=== PATIENT | male | born 1980 | race African-American/Black ===

== ENCOUNTER 2016-09-16 09:47 | Emergency (ER) | payer MEDICAID ==
[~2016-09-16] VITALS: Ht 193 cm; Wt 67.0 kg
[~2016-09-16 09:47] MED LIST: NYQUIL
[2016-09-16] MEDS ORDERED: KETOROLAC 60MG/2ML VIAL IM ONE (10:30)
[2016-09-16 11:44] VITALS: BP 133/71
== END 2016-09-16 11:47 | disposition home or self-care (01) ==
LOC: ER 09:47
DX: L73.1 Pseudofolliculitis barbae (principal); R07.81 Pleurodynia; F17.200 Nicotine dependence, unspecified, uncomplicated; F12.10 Cannabis abuse, uncomplicated
CPT/HCPCS: 71010; 96372; 99283; J1885

== ENCOUNTER 2017-01-21 15:13 | Emergency (ER) | payer MEDICAID ==
[~2017-01-21] VITALS: Ht 185.4 cm; Wt 68.0 kg
[2017-01-21 15:44] VITALS: BP 124/95
== END 2017-01-21 23:57 | disposition left against medical advice (07) ==
LOC: ER 22:50
DX: Z53.21 Procedure and treatment not carried out due to patient leaving prior to being seen by health care provider (principal)

== ENCOUNTER 2017-03-04 11:25 | Emergency (ER) | payer MEDICAID ==
[~2017-03-04] VITALS: Ht 182.9 cm; Wt 70.0 kg
[2017-03-04 15:22] VITALS: BP 131/72
== END 2017-03-04 15:49 | disposition home or self-care (01) ==
LOC: ER 15:42
DX: Z51.89 Encounter for other specified aftercare (principal)
CPT/HCPCS: 99283

== ENCOUNTER 2019-03-15 18:56 | Emergency (ER) | payer MEDICAID ==
[~2019-03-15] VITALS: Ht 182.9 cm; Wt 67.0 kg
[2019-03-15 20:52] VITALS: BP 138/78
== END 2019-03-15 20:53 | disposition home or self-care (01) ==
LOC: ER 18:56
DX: R21 Rash and other nonspecific skin eruption (principal); Z04.89 Encounter for examination and observation for other specified reasons; F12.10 Cannabis abuse, uncomplicated; F17.200 Nicotine dependence, unspecified, uncomplicated
CPT/HCPCS: 99281

== ENCOUNTER 2023-03-02 12:37 | Emergency (ER) | payer MEDICAID ==
[~2023-03-02] VITALS: Ht 182.9 cm; Wt 63.0 kg
[2023-03-02 12:40] VITALS: O2SAT 100
[2023-03-02] MEDS ORDERED: IBUPROFEN 600MG TABLET PO STA (12:43)
[2023-03-02 13:31] VITALS: BP 122/85
[2023-03-02] MEDS ORDERED: IBUP-2029 MT (14:22)
[2023-03-02 15:04] VITALS: PULSE 109; RESP 16; TEMP 98.5
== END 2023-03-02 15:05 | disposition home or self-care (01) ==
LOC: ER 12:37
DX: S09.90XA Unspecified injury of head, initial encounter (principal); V49.9XXA Car occupant (driver) (passenger) injured in unspecified traffic accident, initial encounter; Y93.89 Activity, other specified; Y92.89 Other specified places as the place of occurrence of the external cause; Y99.8 Other external cause status
CPT/HCPCS: 71045; 73030; 99284

== ENCOUNTER 2024-05-11 18:23 | Emergency (ER) | payer OTHER ==
[~2024-05-11] VITALS: Ht 182.9 cm; Wt 76.0 kg
[~2024-05-11 18:23] MED LIST changes: +IBUP-2029 MT
[2024-05-11 18:34] VITALS: O2SAT 100
[2024-05-11 18:52] VITALS: BP 143/67; PULSE 97; RESP 19; TEMP 98.6; O2SAT 99
== END 2024-05-11 21:00 | disposition home or self-care (01) ==
LOC: ER 18:23
DX: S01.01XD Laceration without foreign body of scalp, subsequent encounter (principal); F12.90 Cannabis use, unspecified, uncomplicated; X58.XXXD Exposure to other specified factors, subsequent encounter
CPT/HCPCS: 99281

== ENCOUNTER 2024-09-30 13:26 | Emergency (ER) | payer OTHER ==
[~2024-09-30] VITALS: Ht 172.7 cm; Wt 59.0 kg
[2024-09-30 13:28] VITALS: O2SAT 98
[2024-09-30] MEDS: ASPIRIN 81MG TABLET PO ONE (13:48)
[2024-09-30 14:15] LABS: BASOPHILS % 0.8 % (0.0-2.0); EOSINOPHILS % 1.1 % (0.0-5.0); HEMATOCRIT. 45.1 % (42.0-52.0); LYMPHOCYTES % 34.1 % (20.0-50.0); MEAN CORPUSCULAR HEMOGLOBIN 29.2 pg (28.0-32.0); MEAN CORPUSCULAR HGB CONC 33.3 g/dL (31.0-37.0); MEAN CORPUSCULAR VOLUME 87.9 fL (80.0-94.0); MEAN PLATELET VOLUME 7.8 fl (7.4-10.4); MONOCYTES % 11.5 % (2.0-8.0); NEUTROPHILS % 52.5 % (40.0-76.0); PLATELET 286 x1000/uL (130-400); RED BLOOD CELL COUNT 5.12 mill/uL (4.7-6.1); RED CELL DISTRIBUTION WIDTH 14.7 % (11.6-14.6)
[2024-09-30 14:23] LABS: CHLORIDE 106 mEq/L (98-107); POTASSIUM 3.2 mEq/L (3.5-5.1); SODIUM 141 mEq/L (136-145)
[2024-09-30 14:24] LABS: CALCIUM 9.4 mg/dL (8.7-10.4); CARBON DIOXIDE 27 mEq/L (21-32)
[2024-09-30 14:29] LABS: CREATININE 1.3 mg/dL (0.6-1.3); GLUCOSE 105 mg/dL (70-105); UREA NITROGEN BLOOD 13 mg/dL (9-23)
[2024-09-30 14:30] LABS: ETHANOL BLOOD < 10 mg/dL (<10)
[2024-09-30 14:31] LABS: TROPONIN I HIGH SENSITIVITY 4 ng/L (3.0-53)
[2024-09-30] MEDS: POTASSIUM CHLORIDE 20MEQ TABLET SR PO NR (15:41)
[2024-09-30 15:52] LABS: TROPONIN I HIGH SENSITIVITY 4 ng/L (3.0-53)
[2024-09-30 17:00] VITALS: BP 144/85; PULSE 88; RESP 12; TEMP 36.8; O2SAT 98
== END 2024-09-30 17:32 | disposition home or self-care (01) ==
LOC: ER 13:26 → CANBEDREQ 16:29 → ER 17:32
DX: R07.89 Other chest pain (principal); I25.2 Old myocardial infarction; F10.90 Alcohol use, unspecified, uncomplicated; R41.82 Altered mental status, unspecified; Z79.899 Other long term (current) drug therapy; Y90.9 Presence of alcohol in blood, level not specified
CPT/HCPCS: 80048; 80320; 83880; 83605; 85025; 84484; 36415; 71045; 70450; 93005; 99285; Z7610 ×4; A4606; G0480